=== PATIENT | male | born 1995 | race Caucasian/White ===

== ENCOUNTER 2019-05-18 18:44 | Emergency (ER) | payer OTHER ==
[2019-05-18] MEDS ORDERED: CYCLOBENZAPRINE HCL 10 MG TABLET (FP) PO ONE (18:54)
[2019-05-18] MEDS ORDERED: KETOROLAC TROMETHAMINE 60 MG/2 ML VIAL IM ONE (18:54)
--- NOTE | 2019-05-18 18:54 | PDOC ---
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 Pt on brief exam: rt lumbar paraspinous tenderness pt ordered for: flexeril and toradol Pt to proceed to the ED Discharge Disposition - Diagnosis Back muscle spasm Back pain Qualifiers: Back pain location: low back pain Chronicity: acute Back pain laterality: right Sciatica presence: without sciatica Qualified Code(s): M54.5 - Low back pain - Discharge Dispostion Disposition: HOME Condition at time of disposition: Stable - Prescriptions Prescriptions: Methocarbamol [Robaxin -] 500 mg PO BID PRN #14 tablet PRN Reason: Back Pain Methocarbamol [Robaxin -] 500 mg PO BID PRN #14 tablet PRN Reason: Pain Naproxen [Naprosyn -] 500 mg PO BID PRN #14 tablet PRN Reason: Pain Naproxen 500 mg PO BID #14 tablet.dr - Referrals Referrals: Orlin Kendall MD [Staff Physician] - - Patient Instructions Printed Discharge Instructions: DI for Low Back Pain, DI for Back Spasm Additional Instructions: Your x-ray is normal. Symptoms likely caused by muscle spasm. Take prescribed medication as prescribed for pain. Apply hot compress to low back 2-3 times a day as needed for pain. Follow-up referred to orthopedics if no improvement in 3 days - Post Discharge Activity Work/School Note: Back to Work
[2019-05-18 18:56] VITALS: BP 128/76; PULSE 68; TEMP 98.4; BMI 25.9
[2019-05-18] MEDS ORDERED: METHOCARBAMOL 500 MG TABLET PO ONE (19:12)
[2019-05-18] MEDS ORDERED: KETOROLAC TROMETHAMINE 60 MG/2 ML VIAL ONE (19:23)
--- NOTE | 2019-05-18 19:27 | PDOC ---
History of Present Illness - General Chief Complaint: Back Pain Stated Complaint: BACK PAIN Time Seen by Provider: 05/18/19 18:52 History Source: Patient Exam Limitations: Clinical Condition - History of Present Illness Initial Comments: 05/18/19 19:22 Patient with no significant past medical history present with complaint of right lower back pain status post heavy lifting at work this morning. Patient reported lifting a pallet at work and felt a strain in the lower back but patient kept working and patient is persistently getting worse. Patient did not take anything for pain. Patient reported pain is localized to lower back. No radiculopathy. Denies numbness or tingling sensation. Denies saddle paresthesia, urinary or fecal incontinence. Denies any other symptoms Occurred: reports: this morning Past History - Past Medical History Allergies/Adverse Reactions: Allergies Allergy/AdvReac Type Severity Reaction Status Date / Time apple Allergy Itching Verified 11/25/15 20:19 Home Medications: Ambulatory Orders Methocarbamol [Robaxin -] 500 mg PO BID PRN #14 tablet 05/18/19 Naproxen [Naprosyn -] 500 mg PO BID PRN #14 tablet 05/18/19 Asthma: Yes COPD: No - Immunization History Immunization Up to Date: Yes - Psycho Social/Smoking Cessation Hx Smoking History: Never smoked Information on smoking cessation initiated: No Hx Alcohol Use: No Drug/Substance Use Hx: No Substance Use Type: Marijuana Review of Systems - Review of Systems Able to Perform ROS?: Yes Is the patient limited Albanian proficient: No Constitutional: No: Chills, Fever, Malaise HEENTM: No: Eye Pain, Blurred Vision, Tearing, Recent change in vision, Double Vision, Cataracts, Ear Pain, Ocular Prothesis, Ear Discharge, Nose Pain, Nose Congestion, Tinnitus, Nose Bleeding, Hearing Loss, Throat Pain, Throat Swelling , Mouth Pain, Dental Problems, Difficulty Swallowing, Mouth Swelling, Other Respiratory: No: Symptoms reported, See HPI, Cough, Orthopnea, Shortness of Breath, SOB with Exertion, SOB at Rest, Stridor, Wheezing, Productive cough, Hemoptysis, Other Cardiac (ROS): No: Symptoms Reported, See HPI, Chest Pain, Edema, Irregular Heart Rate, Lightheadedness, Palpitations, Syncope, Chest Tightness, Other ABD/GI: No: Symptoms Reported, Nausea, Vomiting Musculoskeletal: Yes: Symptoms Reported, See HPI, Back Pain (right lower back), Muscle Pain (right side of lower back) Integumentary: No: Symptoms Reported Neurological: No: Symptoms reported, Numbness, Paresthesia, Tingling, Dizziness All Other Systems: Reviewed and Negative *Physical Exam - Vital Signs Last Vital Signs Temp Pulse Resp BP Pulse Ox 98.4 F 68 18 128/76 98 05/18/19 18:54 05/18/19 18:54 05/18/19 18:54 05/18/19 18:54 05/18/19 18:54 - Physical Exam 05/18/19 19:38 GENERAL: Well developed, well nourished. Awake and alert in mild acute distress. PULMONARY: No evidence of respiratory distress. MUSCULOSKELETAL : mild tenderness over posterior paravertebral muscle of lumbar spine of L3-L5 on right side. No midline tenderness. Increased pain with rotation of the hip to the left. No bony deformities .negative straight leg test of right lower extremity. SKIN: Warm and dry. Normal capillary refill. No rashes. No jaundice. NEUROLOGICAL: Alert, awake, appropriate. No motor deficits in the lower extremities. Gait is normal without ataxia. PSYCHIATRIC: Cooperative. Good eye contact. Appropriate mood and affect. General Appearance: Yes: Nourished, Appropriately Dressed, Mild Distress ED Treatment Course - RADIOLOGY Radiology Studies Ordered: Category Date Time Status SPINE-LUMBAR SACRAL [RAD] Stat Radiology 05/18/19 19:12 Ordered - Medications Given in the ED: ED Medications Discontinued Medications Generic Name Dose Route Start Last Admin Trade Name Freq PRN Reason Stop Dose Admin Ketorolac Tromethamine 60 mg 05/18/19 18:54 05/18/19 19:20 Toradol Injection - IM 05/18/19 18:55 60 mg ONCE ONE Administration Methocarbamol 500 mg 05/18/19 19:12 05/18/19 19:21 Robaxin - PO 05/18/19 19:13 500 mg ONCE ONE Administration Medical Decision Making - Medical Decision Making 05/18/19 19:23 Patient with no significant past medical history present with complaint of right lower back pain status post heavy lifting at work this morning. Patient reported lifting a pallet at work and felt a strain in the lower back but patient kept working and patient is persistently getting worse. Patient did not take anything for pain. Patient reported pain is localized to lower back. No radiculopathy. Denies numbness or tingling sensation. Denies saddle paresthesia, urinary or fecal incontinence. Denies any other symptoms Exam significant for moderate tenderness to right paravertebral muscle of lumbar spine of L3-L5. No midline tenderness. Pain worse with external rotation of the hip to the left. Negative straight leg test. Patient symptoms likely back spasm and strain. Toradol 60 mg IM ordered from triage provider. Robaxin 500 mg ordered for pain. X-ray of lumbosacral ordered to rule acute abnormality 05/18/19 19:50 X-ray of lumbosacral spine shows straightening of the spine consistent with spasm otherwise No other abnormality. Patient is stable for discharge on naproxen as needed for pain Robaxin for spasm with advised to do hot compress with orthopedics follow-up as needed Discharge - Discharge Information Problems reviewed: Yes Clinical Impression/Diagnosis: Back muscle spasm Back pain Qualifiers: Back pain location: low back pain Chronicity: acute Back pain laterality: right Sciatica presence: without sciatica Qualified Code(s): M54.5 - Low back pain Condition: Stable Disposition: HOME - Admission No - Additional Discharge Information Prescriptions: Methocarbamol [Robaxin -] 500 mg PO BID PRN #14 tablet PRN Reason: Back Pain Naproxen [Naprosyn -] 500 mg PO BID PRN #14 tablet PRN Reason: Pain - Follow up/Referral Referrals: Orlin Kendall MD [Staff Physician] - - Patient Discharge Instructions Patient Printed Discharge Instructions: DI for Low Back Pain, DI for Back Spasm Additional Instructions: Your x-ray is normal. Symptoms likely caused by muscle spasm. Take prescribed medication as prescribed for pain. Apply hot compress to low back 2-3 times a day as needed for pain. Follow-up referred to orthopedics if no improvement in 3 days - Post Discharge Activity Work/Back to School Note: Back to Work
[2019-05-18] MEDS ORDERED: METHOCARBAMOL 500 MG TABLET ONE (19:33)
== END 2019-05-18 20:00 | disposition home or self-care (01) ==
LOC: JERFT 18:44
PROC: 3E0233Z Introduction of Anti-inflammatory into Muscle, Percutaneous Approach (ICD-10-PCS; principal; 2019-05-18)
DX: M62.830 Muscle spasm of back (principal); M54.5 Low back pain; X50.9XXA Other and unspecified overexertion or strenuous movements or postures, initial encounter; Y93.89 Activity, other specified; Y92.69 Other specified industrial and construction area as the place of occurrence of the external cause; Y99.0 Civilian activity done for income or pay
CPT/HCPCS: 72100-TC-FY; 99281-25

== ENCOUNTER 2022-12-20 12:02 | Emergency (ER) | payer OTHER ==
[2022-12-20 12:12] VITALS: BP 109/61; PULSE 61; RESP 20; TEMP 98.8; BMI 34.0
[2022-12-20] MEDS ORDERED: IBUPROFEN 600 MG TABLET (FP) PO ONE ×2 (13:17→13:18)
== END 2022-12-20 15:07 | disposition home or self-care (01) ==
LOC: JERFT 12:02
DX: R68.84 Jaw pain (principal); S09.93XA Unspecified injury of face, initial encounter; X58.XXXA Exposure to other specified factors, initial encounter
CPT/HCPCS: 70450-TC; 70486-TC; 99284-25